=== PATIENT | male | born 1985 | race Caucasian/White ===

== ENCOUNTER → 2020-08-07 | Outpatient (CLI) | payer OTHER | LOC: LAB 09:53 | DX: J02.9 Acute pharyngitis, unspecified (principal); Z20.828 Contact with and (suspected) exposure to other viral communicable diseases ==

== ENCOUNTER → 2021-07-18 | Outpatient (CLI) | payer BC | LOC: LAB 16:50 | DX: Z20.822 Contact with and (suspected) exposure to COVID-19 (principal) ==

== ENCOUNTER → 2024-02-18 | Outpatient (CLI) | payer BC ==
[2024-02-18 12:09] LABS: CALCIUM 10.2 mg/dL (8.3-10.5)
== END ==
LOC: LAB 11:40
PROVIDERS: Family Medicine
DX: I10 Essential (primary) hypertension (principal)